=== PATIENT | male | born 1965 ===

== ENCOUNTER 2017-04-22 11:13 | Emergency (ER) | payer OTHER ==
[2017-04-22] MEDS ORDERED: Sodium Chloride 0.9% 1,000 ML IV ONE (12:21)
[2017-04-22 13:01] LABS: MEAN PLATELET VOLUME 8.3 fL (7.2-11.7)
[2017-04-22 13:06] LABS: BASO # 0.1 K/uL (0.0-0.2); BASO % 1.3 % (0.0-2.0); EOS # 0.2 K/uL (0.0-0.7); EOS % 2.5 % (0.0-4.0); HEMATOCRIT 42.2 % (35.0-51.0); LYMPH # 2.3 K/uL (1.0-4.3); LYMPH % 38.7 % (20.0-40.0); MEAN CELL VOLUME 87.6 fL (80.0-94.0); MEAN CORPUSCULAR HEMOGLOBIN 29.9 pg (27.0-31.0); MEAN CORPUSCULAR HGB CONC 34.2 g/dL (33.0-37.0); MONO # 0.6 K/uL (0.0-0.8); MONO % 9.4 % (0.0-10.0); RED CELL DISTRIBUTION WIDTH 12.8 % (11.5-14.5); WHITE BLOOD COUNT 5.9 K/uL (4.8-10.8)
[2017-04-22] MEDS ORDERED: Sodium Chloride 0.9% 1,000 ML ONE (13:14)
[2017-04-22 13:16] LABS: RBC URINE < 1 /hpf (0-3); URINE BILIRUBIN NEGATIVE (NEGATIVE); URINE BLOOD NEGATIVE (NEGATIVE); URINE COLOR Straw (YELLOW); URINE GLUCOSE (UA) NORMAL (Normal); URINE KETONE NEGATIVE (NEGATIVE); URINE LEUKOCYTE ESTERASE NEG Leu/uL (Negative); URINE PROTEIN NEGATIVE (NEGATIVE); URINE UROBILINOGEN NORMAL mg/dL (0.2-1.0); WBC URINE < 1 /hpf (0-5)
[2017-04-22 13:32] LABS: CHLORIDE 104 mmol/L (98-107); POTASSIUM 4.3 mmol/L (3.6-5.2); SODIUM 139 mmol/L (132-148)
[2017-04-22 13:34] LABS: AST/SGOT 51 U/L (17-59); BILIRUBIN,TOTAL 0.6 mg/dL (0.2-1.3); CARBON DIOXIDE 28 mmol/L (22-30); GFR AFRICAN-AMERICAN > 60
[2017-04-22 13:35] LABS: ALB/GLOB RATIO 1.4 (1.0-2.1); ALKALINE PHOSPHATASE 74 U/L (38-126); ALT/SGPT 78 U/L (21-72); BLOOD UREA NITROGEN 8 mg/dL (9-20); CALCIUM 9.1 mg/dl (8.6-10.4); GLUCOSE,RANDOM 101 mg/dL (75-110); TOTAL PROTEIN 7.3 g/dL (6.3-8.3)
--- NOTE | 2017-04-22 13:43 | C.PDOC ---
History Of Present Illness 51 y/o male presents to ED with complaints of intermittent RLQ abdominal pain and back pain for 2 days. Pain aggravated by movement. Patient reports he took an Aleve yesterday with some relief. Patient denies nausea, vomiting, dysuria, hematuria, testicular pain, fever or any other complaints at this time. Time Seen by Provider: 04/22/17 12:11 Chief Complaint (Nursing): Abdominal Pain History Per: Patient History/Exam Limitations: no limitations Onset/Duration Of Symptoms: Days Current Symptoms Are (Timing): Still Present Location Of Pain/Discomfort: RLQ Past Medical History Reviewed: Historical Data, Nursing Documentation, Vital Signs Vital Signs: Last Vital Signs Temp 98 F 04/22/17 15:54 Pulse 54 L 04/22/17 15:54 Resp 18 04/22/17 15:54 BP 114/72 04/22/17 15:54 Pulse Ox 99 04/22/17 16:55 Surgical History: No Surg Hx Family History: States: No Known Family Hx - Social History Hx Alcohol Use: No Hx Substance Use: No - Immunization History Hx Tetanus Toxoid Vaccination: No Hx Influenza Vaccination: Yes Hx Pneumococcal Vaccination: No Review Of Systems Except As Marked, All Systems Reviewed And Found Negative. Constitutional: Negative for: Fever, Chills Gastrointestinal: Positive for: Abdominal Pain. Negative for: Nausea, Vomiting , Diarrhea Genitourinary: Negative for: Dysuria, Hematuria Musculoskeletal: Positive for: Back Pain Skin: Negative for: Rash Physical Exam - Physical Exam Appears: Non-toxic, No Acute Distress Skin: Normal Color, Warm, Dry, No Rash Head: Atraumatic, Normacephalic Eye(s): bilateral: Normal Inspection, EOMI Nose: Normal Oral Mucosa: Moist Neck: Normal ROM, Supple Chest: Symmetrical Cardiovascular: Rhythm Regular, No Murmur Respiratory: Normal Breath Sounds, No Rales, No Rhonchi, No Wheezing Gastrointestinal/Abdominal: Soft, Tenderness ((+) RLQ), No Guarding, No Rebound Back: No CVA Tenderness, No Vertebral Tenderness, Paraspinal Tenderness (Right) Male Genital: No Testicular Tenderness, Inguinal Tenderness (right sided) Neurological/Psych: Oriented x3, Normal Speech, Normal Cognition ED Course And Treatment - Laboratory Results Result Diagrams: 04/22/17 12:53 04/22/17 12:53 O2 Sat by Pulse Oximetry: 99 (RA) Pulse Ox Interpretation: Normal Progress Note: On re-evaluation, pt is sleeping. Upon awakening, pt notes pain improved. Only feels it with movement. Discussed with pt CT results including R kidney findings .Copy was given of results and isntructed strict follow up. Case discussed with Dr Colin, agreed upon plan and discharge. Disposition - Disposition Disposition: HOME/ ROUTINE Disposition Time: 16:55 Condition: STABLE Additional Instructions: Follow up with your primary medical doctor or clinic in 2-5 days for further evaluation. Show your PMD the results of your CT scan. Return to the emergency department at any time if symptoms persist or worsen. Instructions: Acute Abdominal Pain (ED) Forms: [employer] (Macedonian) - Clinical Impression Clinical Impression: Abdominal pain - PA / LATH TIER / Resident Statement MD/DO has reviewed & agrees with the documentation as recorded. - Scribe Statement The provider has reviewed the documentation as recorded by the Saraibgisel Guerrero All medical record entries made by the Saraibgisel were at my direction and personally dictated by me. I have reviewed the chart and agree that the record accurately reflects my personal performance of the history, physical exam, medical decision making, and the department course for this patient. I have also personally directed, reviewed, and agree with the discharge instructions and disposition.
[2017-04-22] MEDS ORDERED: Iodixanol 320 MG/ML 100 ML BOTTLE IV ONE (14:34)
[2017-04-22 15:55] VITALS: BP 114/72; PULSE 54; RESP 18; TEMP 98
--- NOTE | 2017-04-22 16:40 | CT ---
PROCEDURE: CT Abdomen and Pelvis with contrast HISTORY: RLQ pain COMPARISON: None available. TECHNIQUE: Contrast dose: 100 cc Visipaque 320 Radiation dose: Total exam DLP = 720.81 mGy-cm. This CT exam was performed using one or more of the following dose reduction techniques: Automated exposure control, adjustment of the mA and/or kV according to patient size, and/or use of iterative reconstruction technique. FINDINGS: LOWER THORAX: No visible consolidation, pleural effusion, or pneumothorax. LIVER: Hypoattenuation of the liver compatible with hepatic steatosis. GALLBLADDER AND BILE DUCTS: Unremarkable. PANCREAS: Unremarkable. SPLEEN: Unremarkable. ADRENALS: Unremarkable. KIDNEYS AND URETERS: 10 mm hypodense lesion within the right kidney; suggest ultrasound for further characterization. No hydronephrosis. No obstructing calculus. VASCULATURE: No aortic aneurysm. BOWEL: Stomach is nondistended. Lack of oral contrast limits evaluation for bowel pathology. Bowel loops appear within normal limits of caliber without evidence of obstruction. APPENDIX: The appendix appears within normal limits of caliber. No secondary signs of acute appendicitis. PERITONEUM: No significant free fluid. No definite free air. LYMPH NODES: No bulky adenopathy identified. BLADDER: Unremarkable. REPRODUCTIVE: The prostate gland measures approximately 3.2 x 3.8 cm. BONES: Mild degenerative changes. OTHER FINDINGS: None. IMPRESSION: Hypoattenuation of the liver compatible with hepatic steatosis. 10 mm hypodense lesion within the right kidney; suggest ultrasound for further characterization.
[2017-04-22 16:56] VITALS: O2SAT 99
== END 2017-04-22 17:32 | disposition home or self-care (01) ==
LOC: C.ER 11:13
DX: R10.31 Right lower quadrant pain (principal)
CPT/HCPCS: 74177; 80053; 81001; 83690; 85025; 96361; 96374; 96375; 99285; J1885; J2405; J7040; Q9967